=== PATIENT | female | born 1980 | race Caucasian/White ===

== ENCOUNTER 2023-05-28 07:56 | Outpatient (CLI) | payer OTHER, SELFPAY ==
--- NOTE | 2023-05-28 08:15 | CRLHL7_ITS ---
For Patients: As a result of the Century Cures Act, medical imaging exams and procedure reports are released immediately into your electronic medical record. You may view this report before your referring provider. If you have questions, please contact your health care provider. BILATERAL SCREENING MAMMOGRAM WITH COMPUTER-AIDED DETECTION TECHNIQUE: CC and MLO views were obtained. These mammographic images have been obtained using full-field digital technique. These mammographic images were interpreted with the benefit of computer-aided detection. COMPARISON FILM: 11/12/21, 05/17/20. FINDINGS: The breasts are heterogeneously dense, which may obscure small masses IMPRESSION: There is no radiographic evidence for malignancy. ASSESSMENT: BI-RADS Category 2: Benign RECOMMENDATION: Routine screening mammogram in 1 year. A lay language report of this examination will be provided to the patient. Juan Mcintosh M.D. Diagnostic Radiologist [email or web address] MARCIN/Dictated by: Juan Mcintosh MD @ 05/28/2023 11:59:00 AM (Electronically Signed)
== END 2023-05-28 07:57 | disposition home or self-care (01) ==
LOC: MAMMO 07:57
PROVIDERS: PCP Family Medicine; Visit Provider Family Medicine
DX: Z12.31 Encounter for screening mammogram for malignant neoplasm of breast (principal); R92.2 Inconclusive mammogram
CPT/HCPCS: 77063; 77067

== ENCOUNTER 2023-08-26 14:21 | Outpatient (CLI) | payer OTHER, SELFPAY | END 2023-08-26 14:22 | disposition home or self-care (01) | PROVIDERS: PCP Family Medicine; Visit Provider Internal Medicine | DX: I48.91 Unspecified atrial fibrillation (principal); E78.5 Hyperlipidemia, unspecified | CPT/HCPCS: 80053; 84443 ==

== ENCOUNTER 2023-09-04 14:06 | Outpatient (CLI) | payer OTHER, SELFPAY | END 2023-09-04 14:07 | disposition home or self-care (01) | LOC: RAD 14:07 | PROVIDERS: PCP Family Medicine; Visit Provider Internal Medicine | DX: I48.91 Unspecified atrial fibrillation (principal); I34.0 Nonrheumatic mitral (valve) insufficiency | CPT/HCPCS: 93306 ==

== ENCOUNTER 2023-09-07 16:22 | Emergency (ER) | payer OTHER, SELFPAY ==
[2023-09-07 16:47] VITALS: BP 97/67; PULSE 118; RESP 22; TEMP 36.6; O2SAT 98; BMI 23.2
--- NOTE | 2023-09-07 18:59 | CRLHL7_ITS ---
For Patients: As a result of the Century Cures Act, medical imaging exams and procedure reports are released immediately into your electronic medical record. You may view this report before your referring provider. If you have questions, please contact your health care provider. INDICATION: Left leg pain COMPARISON: None. TECHNIQUE: Torres-scale, color, and duplex Doppler imaging of the examined veins. Compression and augmentation attempted where anatomically and clinically feasible. FINDINGS: Laterality: Left Examined veins: Common femoral, femoral, popliteal, peroneal, posterior tibial Greater saphenous The examined veins are patent with normal color Doppler flow and a normal venous waveform on duplex Doppler. Where possible, there is normal compression and normal augmentation of flow. The right common femoral vein was sampled for comparison and is normal. No waveform abnormalities to suggest central occlusion. IMPRESSION: No deep vein thrombosis in left leg. Dictated by Yas Zhu MD @ 09/07/2023 7:49:25 PM (Electronically Signed)
--- NOTE | 2023-09-07 19:00 | ED.GENADULT ---
HPI - General Adult General Chief complaint: Shortness of Breath/Dyspnea Stated complaint: Shortness of breath Time Seen by Provider: 09/07/23 18:29 History of Present Illness HPI narrative: This 42-year-old female was at a cardiology appointment prior to arrival here and was sent here with the assumption that she was in atrial fibrillation and needs to be stabilized for her tachycardia and then transferred to where she can get a transesophageal echocardiogram and then be cardioverted. She has been taking Eliquis for the past couple days. She was seen about 10 or 11 days ago an EKG then showed some similar heart rate and rhythm as what is seen today but there are P waves on some of the beats that are occurring at normal rate and where as the others are tachycardia. The computer read this previous EKG is atrial fibrillation and so the patient had a follow-up with Cardiology today and was sent here to arrange for transfer. The patient does report some chest discomfort at times and states that she has been having an increased heart rate over the past 3 or 4 weeks. She normally is active and healthy and regularly exercises. She states that she has not been able to exercise because of shortness of breath and some chest discomfort when doing so. Related Data Home Medications Medication Instructions Recorded Confirmed omega 6-mrp-edv-fish oil 1,000 mg 1 cap PO QDAY 09/07/23 09/07/23 (120 mg-180 mg) capsule (Fish Oil) tirzepatide 7.5 mg/0.5 mL 7.5 mg subcut QWEEK 09/07/23 09/07/23 subcutaneous pen injector Previous Rx's Medication Instructions Recorded escitalopram oxalate 20 mg tablet 20 mg PO QDAY #90 tabs 03/13/23 (Lexapro) apixaban 5 mg tablet (Eliquis) 5 mg PO BID Atrial Fibrillation 08/28/23 #60 tabs metoprolol tartrate 25 mg tablet 25 mg PO BID #60 tabs 09/07/23 Allergies Allergy/AdvReac Type Severity Reaction Status Date / Time No Known Allergies Allergy Unknown Unknown Verified 09/07/23 15:32 Review of Systems Status of ROS: Reports: 10 or more systems reviewed and unremarkable except as noted in History and below Narrative: Constitutional: No fevers, no weight gain or loss. Eyes: No discharge. No vision changes. HENT: No congestion, no sore throat, no ear pain. Cardiovascular: Occasional chest pain. Respiratory: No wheezes, no cough. Shortness of breath as described above. Gastrointestinal: No abdominal pain, no vomiting, no diarrhea. Genitourinary: No dysuria, no hematuria. Musculoskeletal: Normal range of motion. She reports some constant ache in her left leg over the past several weeks. Skin: No rashes, no pruritis. Neurological: No dizziness, weakness, sensory change, speech change. Endo/Heme/Allergies: No bruising or bleeding. No polydipsia. Pysch: no suicidality, no anxiety, no insomnia. All other systems reviewed and are negative. [facility] Medical History (Updated 09/07/23 @ 20:42 by Eyad Hernandez MD) Atrial fibrillation ?I48.91 - Unspecified atrial fibrillation (ICD-10) Dyslipidemia ?E78.5 - Hyperlipidemia, unspecified (ICD-10) Anxiety ?F41.9 - Anxiety disorder, unspecified (ICD-10) Surgical History (Updated 03/13/23 @ 10:56 by Latosha Thompson MD) Hx of breast surgery (~04/2021) ?Z98.890 - Other specified postprocedural states (ICD-10) IUD (intrauterine device) in place ?Z97.5 - Presence of (intrauterine) contraceptive device (ICD-10) History of third molar tooth extraction (1999) ?K08.409 - Partial loss of teeth, unspecified cause, unspecified class (ICD-10) Family History (Updated 03/13/23 @ 06:25 by Latosha Thompson MD) Paternal Grandfather Lung cancer Paternal Grandmother Stomach cancer Daughter Borderline personality disorder Social History (Updated 03/13/23 @ 10:57 by Latosha Thompson MD) Narrative: , controller, 3 children Non-smoker Rarely consumes alcohol exercises 5 to 6 times per week: 60 minutes running, Walking, weight lifting Smoking Status: Never smoker Little interest or pleasure in doing things: several days Feeling down, depressed, or hopeless: more than half the days Exam Narrative: Exam Narrative: Constitutional: Well-developed, well-nourished, no acute distress. HEENT: Normocephalic, atraumatic. Neck: Normal range of motion. Nontender. Supple. Heart: Regular. No murmurs. Mild tachycardia. Intact distal pulses. Lungs: Clear to auscultation. No chest discomfort. No wheezes, rhonchi, or rales. Abdomen: Normal bowel sounds. Nontender. No rebound tenderness. Genitalia: Deferred. Back: No midline tenderness. Normal range of motion. Extremities: Normal range of motion. No injury. Skin: Intact. No rash. Warm. No erythema or pallor. Neurologic: No altered sensation. No weakness. Alert and oriented. Psychiatric: No suicidality. No anxiety or depression. No insomnia. Nursing notes and vitals signs are reviewed. Const: Vital Signs, click to edit/add: Vital Signs - 24 hr 09/07/23 16:47 Temperature 97.9 F Pulse Rate [Right] 118 H Respiratory Rate 22 Blood Pressure [Ri ght Upper Arm] 97/67 Pulse Oximetry 98 Oxygen Delivery Me thod Room Air Course Vital Signs Vital signs: Initial Vital Signs Temperature 97.9 F 09/07/23 16:47 Temperature Source Temporal Artery Scan 09/07/23 16:47 Pulse Rate 118 H 09/07/23 16:47 Pulse Rhythm Irregular 09/07/23 16:47 Respiratory Rate 22 09/07/23 16:47 Blood Pressure 97/67 09/07/23 16:47 Blood Pressure Mean 77 09/07/23 16:47 Blood Pressure Position Sitting 09/07/23 16:47 Pulse Oximetry 98 09/07/23 16:47 Oxygen Delivery Method Room Air 09/07/23 16:47 Vital Signs Temperature 97.9 F 09/07/23 16:47 Pulse Rate 118 H 09/07/23 16:47 Respiratory Rate 22 09/07/23 16:47 Blood Pressure 97/67 09/07/23 16:47 Pulse Oximetry 98 09/07/23 16:47 Oxygen Delivery Method Room Air 09/07/23 16:47 Temperature 97.9 F 09/07/23 16:47 Pulse Rate 118 H 09/07/23 16:47 Respiratory Rate 22 09/07/23 16:47 Blood Pressure 97/67 09/07/23 16:47 Pulse Oximetry 98 09/07/23 16:47 Oxygen Delivery Method Room Air 09/07/23 16:47 Medical Decision Making MDM Narrative Medical decision making narrative: This patient is sent here from cardiology clinic with the assumption that she would need cardioversion for atrial fibrillation with rapid ventricular response. The patient states that there was not an EKG done in clinic. An EKG was done here and shows a heart rate of 106 beats per minute but I do see P waves with some normal sinus rate and rhythm and then some sinus tachycardia. This does not appear to be atrial fibrillation and in my opinion she should not be cardioverted. The patient is asymptomatic at rest. She did have an echocardiogram recently which did show some decreased ejection fraction of 45% and some mild heart failure. The patient did have her thyroid checked a week ago with normal results. She did report some pain in her legs so an ultrasound was done and D-dimer is acquired. These both returned negative for any suspicion of thrombus. The patient received an oral dose of metoprolol 25 mg with the hopes that this would team the increased heart rate. She continues in a similar rhythm that she arrived in. I spoke with the bushel worker on-call, Dr. Guerrero Cardozo, who reviewed her records and was able to see notes from her recent visit with Dr. Richardson. He agreed that cardioversion is not indicated and did recommend prescribing metoprolol. She will need to follow-up with bushel worker again and may need to be on a medicine like Entresto or losartan. Lab Data Labs: Lab Results 09/07/23 Range/Units 19:06 D-Dimer Quant (PE/DVT) < 0.27 (0.00-0.50) ug/ml POC Troponin I 0.00 L (0.01-0.04) ng/ml ECG Data Attestation: I personally reviewed and interpreted this ECG as follows: Interpretation: Sinus tachycardia with some episodes of normal sinus rhythm. There are no specific ST or T-wave abnormalities. Discharge Plan Discharge Clinical Impression: Congestive heart failure, Sinus tachycardia Patient Disposition: Home, Self-Care Condition: Unchanged Additional Instructions: Take metoprolol as prescribed. Follow-up with cardiology clinic for ongoing management. Return if worsening. Prescriptions: New metoprolol tartrate 25 mg tablet 25 mg PO BID Qty: 60 2RF No Action escitalopram oxalate [Lexapro] 20 mg tablet 20 mg PO QDAY Qty: 90 4RF Eliquis 5 mg tablet 5 mg PO BID Qty: 60 3RF tirzepatide 7.5 mg/0.5 mL pen injector 7.5 mg subcut QWEEK omega 1-ayi-sbe-fish oil [Fish Oil] 1,000 mg (120 mg-180 mg) capsule 1 cap PO QDAY Follow Up/Referrals: Latosha Thompson MD [Primary Care Provider] - Stand Alone Forms: [facility] Info Instructions
[2023-09-07 19:42] LABS: D Dimer Quantitative* < 0.27 ug/ml (0.00-0.50)
[2023-09-07] MEDS: METOPROLOL TARTRATE 25 MG TABLET PO (20:38)
== END 2023-09-07 20:50 | disposition home or self-care (01) ==
PROVIDERS: Emergency Provider Emergency Medicine Emergency Medical Services; PCP Family Medicine
DX: I50.9 Heart failure, unspecified (principal); R00.0 Tachycardia, unspecified
CPT/HCPCS: 36415; 84484; 85379; 93005; 93971; 99284; 99285; A9270

== ENCOUNTER 2023-10-14 13:03 | Outpatient (CLI) | payer OTHER, SELFPAY | END 2023-10-14 13:04 | disposition home or self-care (01) | LOC: RAD 13:04 | PROVIDERS: PCP Family Medicine; Visit Provider Internal Medicine | DX: I48.19 Other persistent atrial fibrillation (principal) | CPT/HCPCS: 93306 ==

== ENCOUNTER 2024-05-03 10:32 | Outpatient (CLI) | payer OTHER, SELFPAY | END 2024-05-03 10:33 | disposition home or self-care (01) | LOC: NFLDREF 10:33 | PROVIDERS: PCP Internal Medicine; Visit Provider Internal Medicine | DX: Z13.228 Encounter for screening for other metabolic disorders (principal); Z87.828 Personal history of other (healed) physical injury and trauma | CPT/HCPCS: 80048 ==

== ENCOUNTER 2025-05-08 08:20 | Outpatient (CLI) | payer OTHER, SELFPAY | END 2025-05-08 08:21 | disposition home or self-care (01) | LOC: NFLDREF 05-11 12:04 | PROVIDERS: PCP Internal Medicine; Referring Provider Internal Medicine; Visit Provider Family Medicine | DX: E78.5 Hyperlipidemia, unspecified (principal) | CPT/HCPCS: 80053; 80061 ==

== ENCOUNTER 2025-05-11 13:26 | Outpatient (CLI) | payer OTHER, SELFPAY ==
[2025-05-13 08:46] LABS: HPV Source Cervical
[2025-05-16 15:21] LABS: Pap Test Digital Imaging Done
== END 2025-05-11 13:27 | disposition home or self-care (01) ==
PROVIDERS: PCP Family Medicine; Visit Provider Family Medicine
DX: Z12.4 Encounter for screening for malignant neoplasm of cervix (principal); Z11.51 Encounter for screening for human papillomavirus (HPV)
CPT/HCPCS: 87624; 87625; 88141; 88142; 88175

== ENCOUNTER 2025-09-06 13:57 | Outpatient (CLI) | payer OTHER, SELFPAY ==
--- NOTE | 2025-09-06 14:00 | CRLHL7_ITS ---
For Patients: As a result of the Cures Act, medical imaging exams and procedure reports are released immediately into your electronic medical record. You may view this report before your referring provider. If you have questions, please contact your health care provider. INDICATION: BILATERAL SCREENING MAMMOGRAM, ASYMPTOMATIC 44 Y/O FEMALE COMPARISON: 05/28/2023 TECHNIQUE: Digital mammogram in CC and MLO projections including computer-aided detection (CAD) and tomosynthesis. BREAST COMPOSITION: The breasts are heterogeneously dense, which may obscure small masses. FINDINGS: No suspicious findings. ASSESSMENT: BI-RADS 1 Negative RECOMMENDATION: Annual screening mammogram. A lay language report of this examination will be provided to the patient. Dictated by: Lavinia Capone MD @ 09/08/2025 13:17:44 (Electronically Signed)
== END 2025-09-06 13:58 | disposition home or self-care (01) ==
LOC: MAMMO 13:58
PROVIDERS: PCP Family Medicine; Visit Provider Family Medicine
DX: Z12.31 Encounter for screening mammogram for malignant neoplasm of breast (principal); R92.333 Mammographic heterogeneous density, bilateral breasts
CPT/HCPCS: 77063; 77067